=== PATIENT | female | born 1965 | race African-American/Black ===

== ENCOUNTER 2023-03-05 14:47 | Emergency (ER) | payer BC, SELFPAY | END 2023-03-05 16:02 | disposition home or self-care (01) | LOC: ERS 14:47 | DX: T78.40XA Allergy, unspecified, initial encounter (principal); I10 Essential (primary) hypertension; Z79.899 Other long term (current) drug therapy | CPT/HCPCS: 99283 ==

== ENCOUNTER 2023-03-06 04:25 | Emergency (ER) | payer SELFPAY ==
[2023-03-06] MEDS ORDERED: Dexameth. Sod Phosp. 10 MG/ML (CHEMO USE ONLY) ONE (05:00)
== END 2023-03-06 05:37 | disposition home or self-care (01) ==
LOC: ERS 04:25
DX: T78.40XA Allergy, unspecified, initial encounter (principal); I10 Essential (primary) hypertension; Z79.82 Long term (current) use of aspirin; Z79.899 Other long term (current) drug therapy
CPT/HCPCS: 99283; J1100

== ENCOUNTER 2023-03-17 17:55 | Emergency (ER) | payer SELFPAY | END 2023-03-17 19:22 | disposition home or self-care (01) | LOC: ERS 17:55 | DX: L73.9 Follicular disorder, unspecified (principal); I10 Essential (primary) hypertension; Z79.82 Long term (current) use of aspirin; Z79.899 Other long term (current) drug therapy | CPT/HCPCS: 99282 ==